=== PATIENT | male | born 1960 ===

== ENCOUNTER 2017-11-16 05:08 | Day surgery (SDC) | payer OTHER ==
[~2017-11-16 05:08] MED LIST: CLONAZEPAM2 MG PO; DIOVAN HCT 320/1 TA2 PO
== END 2017-11-16 09:20 | disposition home or self-care (01) ==
LOC: AMB-ENDOS 05:08
DX: K57.30 Diverticulosis of large intestine without perforation or abscess without bleeding (principal); K64.2 Third degree hemorrhoids

== ENCOUNTER 2018-10-25 05:35 | Day surgery (SDC) | payer OTHER | END 2018-10-25 09:30 | disposition home or self-care (01) | LOC: AMB-ENDOS 05:35 | DX: K57.32 Diverticulitis of large intestine without perforation or abscess without bleeding (principal); K64.1 Second degree hemorrhoids ==